=== PATIENT | female | born 1970 | race Caucasian/White ===

== ENCOUNTER → 2017-04-11 | Day surgery (SDC) | payer MEDICARE ==
[~2017-04-11] MED LIST: ASPIRIN EC81 MG PO; COZAAR25 MG PO; CYMBALTA60 MG PO; DAILY VALUE1 EACH PO; HYDROCODON-ACE1 EAC6 PO; LEVOTHROID(SY175 MCG PO; LYRICA 150MG C150 MG PO; NOVOLOG100 UNIT/M SUB-Q; OMEPRAZOLE40 MG PO; PRAVACHOL20 MG PO; RESTORIL15 MG PO; TURMERIC500 MG PO
== END | disposition disaster alternative care site (69) ==
LOC: GOPD 04-06
DX: S43.431A Superior glenoid labrum lesion of right shoulder, initial encounter (principal); M19.011 Primary osteoarthritis, right shoulder; M75.81 Other shoulder lesions, right shoulder; F41.9 Anxiety disorder, unspecified; E10.9 Type 1 diabetes mellitus without complications; M79.7 Fibromyalgia; Z86.14 Personal history of Methicillin resistant Staphylococcus aureus infection; Z90.710 Acquired absence of both cervix and uterus; X58.XXXA Exposure to other specified factors, initial encounter; Z98.890 Other specified postprocedural states
CPT/HCPCS: J2001; J7030